=== PATIENT | male | born 1935 | race Caucasian/White ===

== ENCOUNTER → 2016-10-06 | Outpatient (CLI) | payer OTHER ==
[~2016-10-06] MED LIST: ACETAMINOPHEN650 M5 PO; ASPIRIN EC81 M1 PO; ATENOLOL 25MG T25 M1 PG; ATENOLOL 50 MG50 M1 PO; BENICAR20 MG PO; BUTALB-APAP-CA1 EACH PO; COLACE100 MG PO; DARVOCET-N 1001 EACH PO; DIAZEPAM 5 MG5 M1 PO; FIORICET 50-321 EACH PO; IRON236 MG PO; K-DUR 20 MEQ T20 MEQ PO; LASIX 40 MG TAB40 M1 PO; LORTAB 5 MG/5001 TAB; LORTAB 5 MG/5001 TAB PO; MAXIDE; MIRALAX255 GM PO; MOM PO; MULTIVITAMINS PO; NORCO 5-325 TA1 EACH PO; PACERONE 200 M200 M1 PO; PERCOCET 5-3251 EACH PO; PHISOHEX148 ML TP; SENNA PO; SIMVASTATIN40 MG PO; TRIBENZOR 20-51 EACH PO; VITAMIN D400 UNIT PO; ZOFRAN ODT4 MG PO
== END ==
LOC: RAD 16:15
DX: R07.89 Other chest pain (principal)

== ENCOUNTER → 2016-10-11 | Outpatient (CLI) | payer OTHER ==
[2016-10-11 08:46] LABS: CREATININE 1.3 mg/dL (0.7-1.3)
== END ==
LOC: CAT 08:15
PROVIDERS: Internal Medicine
DX: R91.8 Other nonspecific abnormal finding of lung field (principal)

== ENCOUNTER → 2016-10-18 | Outpatient (CLI) | payer OTHER ==
[~2016-10-18] VITALS: Ht 172.7 cm; Wt 70.3 kg
[~2016-10-18] MED LIST changes: +BENICAR40 MG PO; +BYSTOLIC 5 MG5 M1 PO; +LIDODERM 5%1 PATC1 TOP; +LIVALO2 MG PO; +SERTRALINE HCL50 MG PO; +TRAZODONE HCL50 MG PO; +VALACYCLOVIR1000 MG PO; +VITAMIN D1000 UNI1 PO; +XANAX 0.25 MG0.25 MG PO; +ZETIA10 MG PO
--- NOTE | ~2016-10-18 | S ---
[facility] [place] [address] SURGICAL PATH RPT PROCEDURE Name: STEVEN PANCHAL Room #: [facility] Kevin.#: [id number] Admission: 10/18/16 Date of : 37 Discharge: Report #: [id number] Path Case #: [id number] PATHOLOGY REPORT COLLECTION DATE: 10/18/2016 RECEIVED DATE: 10/18/2016 SUBMITTING PHYS: Dr. 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 (PLEASE SEE COMMENT) COMMENT: Examination shows a malignant neoplasm with spindled cells, pleomorphic, markedly enlarged nuclei, occasional nucleoli, and large areas of geographic necrosis. Mitotic figures are identified easily. Overall, the differential diagnosis includes a sarcomatoid carcinoma or a malignant mesothelioma. A wide range of immunohistochemical stains are performed to further identify the neoplasm. Block A1: AE1/AE3: non-reactive; Vimentin: strongly reactive; TTF-1: non-reactive (internal control works appropriately with alveolar li showing strong reactivity); CK5/6: non-reactive; P40: non-reactive; BerEp4: reactive within the rare glandular areas; WT1: strong nuclear reactivity present within rare tumor cells; D2-40: reactive within occasional cells. 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 This case is sent to [facility] for their expert opinion. Co-review: Dr. Taz Mijares. The findings are discussed with Dr. Paul Hartley at 11:00 a.m., on 10/23/16. (IUV:csd; d/t: 10/23/2016) PATHOLOGIST: Jessica Gaviria M.D. REPORT ELECTRONICALLY SIGNED BY: Jessica Gaviria M.D. [facility] [place] [address] SURGICAL PATH RPT PROCEDURE Name: STEVEN PANCHAL Room #: [facility].#: [id number] Admission: 10/18/16 Date of : 37 Discharge: Report #: [id number] Path Case #: [id number] DATE/TIME: 10/23/2016 12:56 * * * * * * * * * * * * GROSS PATHOLOGY: Received in formalin labeled "Steven Panchal, left lung biopsy," are seven distinct needle cores of silva soft tissue ranging from 0.3 to 1.9 cm in length, which are submitted entirely in cassette A1. (CAA; 10/19/2016) CLINICAL HISTORY: Left lung mass INITIAL CPT CODE(S): A; 49390, 14798, 10672, 58896, 38042, 26626, 13418, 87927, 12822 Professional services performed by [facility] at [facility] , [place] [address] Technical services performed by [facility] at [address] [place] [address], [address], [place] [address]. [facility] [address] [place] [address] PHONE: [phone] DIRECTOR: Stas Haley M.D. * * * END OF REPORT * * *
[2016-10-18 08:27] VITALS: BP 146/59
[2016-10-18 08:56] LABS: HEMATOCRIT 40.1 % (42.0-52.0); HEMOGLOBIN 13.7 gm/dL (14.0-18.0); MCH 29.2 pg (26.0-34.0); MCHC 34.3 g/dL (28.0-37.0); MCV 85.2 fL (80.0-100.0); RBC 4.7 mil/uL (4.50-6.00); RDW 13.8 % (10.5-14.5); WBC 6.7 thou/uL (4.0-11.0)
[2016-10-18 09:03] LABS: CALCIUM 8.5 mg/dL (8.5-10.1); CREATININE 1.2 mg/dL (0.7-1.3); POTASSIUM 4.4 mmol/L (3.5-5.1)
[2016-10-18 09:12] LABS: APTT 30.6 Seconds (24.5-32.8); PROTIME 10.7 Seconds (9.3-11.4)
[2016-10-18 10:00] VITALS: BP 150/74
[2016-10-18 10:04] VITALS: BP 155/72
[2016-10-18 10:10] VITALS: BP 149/59
== END | disposition home or self-care (01) ==
LOC: CAT 07:42
PROVIDERS: Radiology Vascular & Interventional Radiology
DX: C34.92 Malignant neoplasm of unspecified part of left bronchus or lung (principal)

== ENCOUNTER → 2016-11-14 | Outpatient (CLI) | payer OTHER ==
[2016-11-14 07:25] LABS: ABSOLUTE NEUTROPHILS 4.5 thou/uL (1.4-8.2); BASOPHILS 1.4 % (0.0-2.0); EOSINOPHILS 5.4 % (0.0-3.0); HEMATOCRIT 43.5 % (42.0-52.0); HEMOGLOBIN 14.8 gm/dL (14.0-18.0); MCH 29.4 pg (26.0-34.0); MCV 86.4 fL (80.0-100.0); MONOCYTES 8.3 % (1.0-8.0); PLATELET COUNT 244 thou/uL (150-400); POLYS 66.9 % (36.0-66.0); RBC 5.03 mil/uL (4.50-6.00); RDW 14.3 % (10.5-14.5); WBC 6.7 thou/uL (4.0-11.0)
[2016-11-14 07:26] LABS: MANUAL DIFF NO
[2016-11-14 07:35] LABS: CALCIUM 9.5 mg/dL (8.5-10.1); CREATININE 1.3 mg/dL (0.7-1.3); POTASSIUM 4.1 mmol/L (3.5-5.1)
[2016-11-14 07:40] LABS: ALBUMIN 3.6 g/dL (3.4-5.0); TOTAL BILIRUBIN 0.6 mg/dL (<0.1-1.0); TOTAL PROTEIN 7.1 g/dL (6.4-8.2)
== END ==
LOC: MRI 06:46
PROVIDERS: Internal Medicine Hematology & Oncology
DX: C34.12 Malignant neoplasm of upper lobe, left bronchus or lung (principal); C43.9 Malignant melanoma of skin, unspecified; R94.02 Abnormal brain scan

== ENCOUNTER 2016-12-25 22:19 | Inpatient (IN) | payer OTHER ==
[~2016-12-25] VITALS: Ht 170.2 cm; Wt 59.7 kg
--- NOTE | ~2016-12-25 | HC ---
[facility] [place] [address] CONSULTATION Name: VINCEVIVEKSTEVEN Cuevas Bianca Room #: 313-P ADM IN M.R.#: [id number] Admission: 12/26/16 Attend Phys: Angel Avalos DO Discharge: Date of : 36 Report #: [id number] THIS REPORT FOR: //name// CC: Paul Sherman HISTORY OF PRESENT ILLNESS: The patient is an 81-year-old white male with history of lung cancer with brain mets, admitted with chest pain. Chest x-ray showed a large left lung mass. He was diagnosed with recurrent chest wall pain secondary to cancer pain. He was seen by oncology. They are recommending consultation with radiation oncology with radiation therapy to the pleural based lesion. He also has some acute renal insufficiency with increase in his creatinine. He has been rehydrated with improvement from 2.2 down to 1.2. There is noted some hypercalcemia, which has improved from 10.2 down to 8.8. We are seeing him in rehabilitation medicine consultation. 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 MEDICATIONS: Please see the full medication listing. PAST SURGICAL HISTORY: Cholecystectomy, colostomy with take down, and CABG times 5 in 2010. HABITS: One beer daily, 2 cigarettes per day, former heavier tobacco smoker. SOCIAL HISTORY: House, spouse, 3 steps in, did not utilize gait aids, does have involved family. REVIEW OF SYSTEMS: Did not offer any current complaints of chest pain, shortness of breath, or abdominal discomfort. PHYSICAL EXAMINATION: GENERAL: He is a pleasant 81-year-old short statured white male, rather slender, no obvious distress. The patient is alert and pleasant VITAL SIGNS: Last recorded temperature 98.6, pulse 64, respirations 18, and blood pressure 164/81. HEENT: Appeared to be benign. NEUROLOGIC: Cranial nerves are grossly intact. He follows basic commands without difficulty. EXTREMITIES: He has functional range of motion of both upper extremities with good strength 5-/5. Lower extremities, no focal calf swelling, functional range of motion with good strength 5- to 4+/5. DTRs are trace to 1. Tone appeared to [address] [address] CONSULTATION Name: STEVEN PANCHAL Room #: 313-P [facility] IN M.R.#: [id number] Admission: 12/26/16 Attend Phys: Angel Avalos DO Discharge: Date of : 37 Report #: [id number] be intact. No focal calf swelling. He was able to sit to stand with contact guard assistance and is ambulating 300 feet contact guard without a gait aid. He was seen by occupational therapy, can don his socks. OT is actually discharged him and recommended home health care. ASSESSMENT: An 81-year-old white male with the following problem list: 1. Lung cancer with brain metastasis. 2. Hypercalcemia that has improved. 3. Acute renal insufficiency that also has improved with hydration. 4. Back pain, which appears better. 5. Elevated BNP. 6. History of kjk-weooc-gxfv lung cancer with a pleural based lesion and consideration for radiation therapy. 7. Coronary artery disease, status post coronary artery bypass graft. PLAN: Appears to be too high level at this time to warrant an acute in-hospital inpatient rehabilitation stay. He is ambulating 300 feet without gait aids and both PT and OT are recommending home with home health care. Thank you for asking us to assist in this patient's care. By: 1434 1527 Steven Morales MD /nt
--- NOTE | ~2016-12-25 | EKG ---
[place] [address] [facility] [place] [place] [address] ELECTROCARDIOGRAM REPORT Name: ABDULKADIRSTEVEN Valenzuela Room #: 313-P ADM IN M.R.#: [id number] Admission: 12/26/16 Attend Phys: Angel Avalos DO Discharge: Date of : 36 Report #: [id number] THIS REPORT FOR: //name// [facility] ED Test Date: 2016-12-25 Test Time: 22:23:58 Pat Name: STEVEN PANCHAL Department: Room: [facility] Gender: M Contract Associate: CLARA : 1935 Requested By: Mau Rubio Order Number: [id number] MD: Mundo Mata Measurements Intervals [place] Rate: 56 P: -6 TN: 143 QRS: 27 QRSD: 95 T: 76 QT: 416 QTc: 402 Interpretive Statements Sinus rhythm No significant abnormality Compared to ECG 12/07/2016 20:17:50 No significant change was found Electronically Signed On 12-27-2016 7:23:33 CDT by Mundo Mata [email or web address] <ELECTRONICALLY SIGNED> By: Mundo Mata MD, [facility] 12/27/16 07 22 22 Mundo Mata MD, [facility] /EPI
--- NOTE | ~2016-12-25 | HC ---
[facility] [place] [address] CONSULTATION Name: STEVEN PANCHAL Room #: 313-P ADM IN M.R.#: [id number] Admission: 12/26/16 Attend Phys: Angel Avalos DO Discharge: Date of : 37 Report #: [id number] THIS REPORT FOR: //name// CC: Paul Sherman REASON FOR CONSULTATION: Metastatic lung cancer. 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 He completed radiation therapy with SRS to the left parietal and right temporal on June 14 and to the right frontal on June 16. He received a single fraction of both. The patient describes having some left posterior chest wall back pain that hits him may be once a day and is present 25% of the time. He uses a Lidoderm patch and also uses a muscle relaxer. I think he mentioned tizanidine, at least by the way he tried to spell it, but I do not see him currently on that. He was brought in last night, also was thought to be perhaps slightly confused. His calcium was slightly elevated for his albumin of 3. Ionized calcium is currently pending. Today, the patient is eating breakfast and appears to be feeling better. The patient says the pain has been present off and on for several weeks, may have been slightly worse lately. Denies any new headache troubles, any fevers or chills, diarrhea or constipation, arm or leg swelling or skin rash. His appetite has been off. PAST MEDICAL HISTORY: Past history is notable for a history of non-small cell lung cancer metastatic to the brain that currently appears to be target marker negative. Also has history of tonsillectomy, cholecystectomy, ruptured colon and a colostomy in the past in 1998, appendectomy, MRSA in 1999, depression, hypertension, CABG times 5 in 2010, coronary artery disease and BPH. MEDICATIONS: At home, he had been thought to include Tribenzor, Xanax, nebivolol, trazodone, valacyclovir, fentanyl patch, Lidocaine patch and Fioricet. ALLERGIES: MORPHINE caused hallucinations, TALC caused some itching, CODEINE caused some unknown issues, PENICILLIN unknown issues and SULFONAMIDE, unknown reaction. SOCIAL HISTORY: Not recently smoking, alcohol rarely, street drugs none. [address] [address] CONSULTATION Name: STEVEN PANCHAL Bianca Room #: 313-P [facility] IN M.R.#: [id number] Admission: 12/26/16 Attend Phys: Angel Avalos DO Discharge: Date of : 37 Report #: [id number] FAMILY HISTORY: Noncontributory. PHYSICAL EXAMINATION: GENERAL: The patient appears his stated age. NEUROLOGIC: His face is symmetrical. He appears to be alert and oriented, though he is slightly tired from prior lack of sleep. He has some slight pain between his shoulder blades, that is actually better with palpation, not worse. No pain on rib compression. LUNGS: Have fairly good air motion. HEART: Appears to be regular rate. ABDOMEN: Soft. No mass. EXTREMITIES: Without clubbing or cyanosis. LABORATORY DATA: Labs here, as mentioned above, shows a CBC with a white count of 8.7, hemoglobin 12.1 and platelets 391,000. Chemistry, creatinine at 2.2, which is higher than usual for the patient. Calcium of 10.2, albumin of 3.0. Coags were normal. ASSESSMENT AND PLAN: 1. 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 May consider radiation therapy to the chest wall mass to help with the pain. 2. Back pain. Continue with Lidoderm patch and opiates and muscle relaxers. May consider radiation therapy. This we will check with Dr. Berman to see if he has plans to do so. 3. Calcium. Await ionized calcium level. 4. Renal insufficiency. Await repeat creatinine. 5. Hypertension, meds. 6. Hyperlipidemia, meds. We will follow with you. <ELECTRONICALLY SIGNED> By: Tyree Sherman MD 12/27/16 0750 0820 1127 Tyree Sherman MD /nt
[~2016-12-25 22:19] MED LIST changes: +FENTANYL PA50 MCG/HR TRANSDERM; +OXYCODONE HCL10 MG PO; +OXYCODONE HCL5 MG PO; +SENOKOT-S1 TA1 PO; +VALACYCLOVIR500 MG PO
[2016-12-25 22:20] VITALS: BP 111/51
[2016-12-26 00:24] LABS: ABSOLUTE NEUTROPHILS 6.9 thou/uL (1.4-8.2); BASOPHILS 0.7 % (0.0-2.0); EOSINOPHILS 2.6 % (0.0-3.0); HEMATOCRIT 35.6 % (42.0-52.0); HEMOGLOBIN 12.1 gm/dL (14.0-18.0); LYMPHOCYTES 11.1 % (24.0-44.0); MCH 28.1 pg (26.0-34.0); MCV 82.7 fL (80.0-100.0); MONOCYTES 6.5 % (1.0-8.0); PLATELET COUNT 391 thou/uL (150-400); POLYS 79.1 % (36.0-66.0); RBC 4.31 mil/uL (4.50-6.00); RDW 14.2 % (10.5-14.5); WBC 8.7 thou/uL (4.0-11.0)
[2016-12-26 00:29] LABS: MANUAL DIFF NO
[2016-12-26 00:32] LABS: ANION GAP 10 mmol/L (7-16); BUN 54 mg/dL (7-18); CALCIUM 10.2 mg/dL (8.5-10.1); CHLORIDE 93 mmol/L (98-107); CO2 29 mmol/L (21-32); CREATININE 2.2 mg/dL (0.7-1.3); GLUCOSE 112 mg/dL (74-106); SODIUM 132 mmol/L (136-145)
[2016-12-26 00:47] LABS: APTT 34.3 Seconds (24.5-32.8); INR 1.1
[2016-12-26 00:50] LABS: ALKALINE PHOSPHATASE 68 U/L (46-116); CK-MB MASS 1.5 ng/mL (<0.5-3.6); MAGNESIUM 1.9 mg/dL (1.8-2.4); NT-PRO BRAIN NAT PEPTIDE 415 pg/mL (<300); SGOT 23 U/L (15-37); SGPT 27 U/L (30-65); TOTAL BILIRUBIN 0.6 mg/dL (<0.1-1.0); TOTAL PROTEIN 6.8 g/dL (6.4-8.2); TROPONIN-I < 0.04 ng/mL (<0.04-0.07)
[2016-12-26 02:30] VITALS: BP 119/51; BP 94/58
[2016-12-26 03:20] VITALS: BP 119/59
[2016-12-26 07:33] VITALS: BP 133/59
[2016-12-26 10:35] LABS: CALCIUM 9.8 mg/dL (8.5-10.1); CREATININE 1.8 mg/dL (0.7-1.3); POTASSIUM 3.8 mmol/L (3.5-5.1)
[2016-12-26 15:52] VITALS: BP 123/66
[2016-12-26 19:57] VITALS: BP 154/70
[2016-12-27 04:32] VITALS: BP 134/61
[2016-12-27 05:34] LABS: ABSOLUTE NEUTROPHILS 4.4 thou/uL (1.4-8.2); BASOPHILS 1.3 % (0.0-2.0); EOSINOPHILS 4.8 % (0.0-3.0); HEMATOCRIT 32.8 % (42.0-52.0); HEMOGLOBIN 11.3 gm/dL (14.0-18.0); LYMPHOCYTES 12.2 % (24.0-44.0); MCH 28.3 pg (26.0-34.0); MCHC 34.5 g/dL (28.0-37.0); MONOCYTES 8.8 % (1.0-8.0); POLYS 72.9 % (36.0-66.0); RDW 13.9 % (10.5-14.5); WBC 6.1 thou/uL (4.0-11.0)
[2016-12-27 05:40] LABS: MANUAL DIFF NO; PLATELET COUNT 309 thou/uL (150-400)
[2016-12-27 05:44] LABS: CALCIUM 8.8 mg/dL (8.5-10.1); CREATININE 1.2 mg/dL (0.7-1.3); MAGNESIUM 1.5 mg/dL (1.8-2.4); POTASSIUM 3.6 mmol/L (3.5-5.1)
[2016-12-27 07:44] VITALS: BP 164/81
[2016-12-27 20:01] VITALS: BP 141/60
[2016-12-28 04:12] VITALS: BP 173/67
[2016-12-28 08:00] VITALS: BP 133/55
[2016-12-28 16:00] VITALS: BP 169/81
[2016-12-28 20:00] VITALS: BP 146/67
[2016-12-29 04:00] VITALS: BP 156/70
[2016-12-29 07:30] VITALS: BP 160/70
[2016-12-29] MEDS ORDERED: DIPHENHIST25 M1 PO (09:12)
[2016-12-29] MEDS ORDERED: FENTANYL PA50 MCG/HR TRANSDERM (09:12)
[2016-12-29] MEDS ORDERED: XANAX 0.25 MG0.25 MG PO (09:13)
[2016-12-29] MEDS ORDERED: COLACE 100 MG100 MG PO (09:13)
[2016-12-29] MEDS ORDERED: OXYCODONE HCL10 MG PO (09:13)
[2016-12-29] MEDS ORDERED: BUTALB-APAP-CA1 EACH PO (09:13)
[2016-12-29] MEDS ORDERED: DEXAMETHASONE 22 M1 PO (09:14)
[2016-12-29] MEDS ORDERED: VALTREX 500 MG500 MG PO (09:21)
[2016-12-29] MEDS ORDERED: CLOTRIMAZOLE10 MG PO (09:25)
[2016-12-29] MEDS ORDERED: DEXAMETHASONE2 MG PO (09:25)
[2016-12-29 10:09] VITALS: BP 160/70
[2016-12-29 10:57] VITALS: BP 160/70
== END 2016-12-29 11:10 | disposition home health service (06) | DRG 180 ==
LOC: ER 22:19 → EROBS 12-26 01:25 → 3N 12-26 01:25 → EROBS 12-26 01:25 → 3N 12-26 02:49
PROVIDERS: Emergency Medicine; Nurse Practitioner; Nurse Practitioner Family
DX: C34.92 Malignant neoplasm of unspecified part of left bronchus or lung (principal); N17.1 Acute kidney failure with acute cortical necrosis; C79.31 Secondary malignant neoplasm of brain; E44.1 Mild protein-calorie malnutrition; G89.3 Neoplasm related pain (acute) (chronic); F32.9 Major depressive disorder, single episode, unspecified; I10 Essential (primary) hypertension; I25.10 Atherosclerotic heart disease of native coronary artery without angina pectoris; E86.0 Dehydration; E78.5 Hyperlipidemia, unspecified; M54.9 Dorsalgia, unspecified; F41.9 Anxiety disorder, unspecified; B37.9 Candidiasis, unspecified; D64.9 Anemia, unspecified; N40.0 Benign prostatic hyperplasia without lower urinary tract symptoms; E83.52 Hypercalcemia; Z86.14 Personal history of Methicillin resistant Staphylococcus aureus infection; Z68.20 Body mass index [BMI] 20.0-20.9, adult; Z93.3 Colostomy status; Z95.1 Presence of aortocoronary bypass graft; Z87.891 Personal history of nicotine dependence; Z90.49 Acquired absence of other specified parts of digestive tract; Z88.5 Allergy status to narcotic agent; Z88.0 Allergy status to penicillin; Z88.2 Allergy status to sulfonamides; Z88.8 Allergy status to other drugs, medicaments and biological substances; Z91.040 Latex allergy status

== ENCOUNTER 2017-01-21 20:16 | Inpatient (IN) | payer OTHER ==
[~2017-01-21] VITALS: Ht 172.7 cm; Wt 56.9 kg
--- NOTE | ~2017-01-21 | HC ---
[facility] [place] [address] CONSULTATION Name: TAYAMasonSTEVEN Room #: 430-P ADM IN M.R.#: [id number] Admission: 01/21/17 Attend Phys: Noel Palmer MD Discharge: Date of : 36 Report #: [id number] THIS REPORT FOR: //name// CC: Paul Palmer DATE OF SERVICE: 01/22/2017 ATTENDING PHYSICIAN: Dr. Palmer. REASON FOR CONSULTATION: Acute kidney injury. HISTORY OF PRESENT ILLNESS: This is an 81-year-old gentleman with history of hypertension, coronary artery disease, has been found to have lung cancer, recently completed radiation therapy for brain metastasis and back metastasis. He has a large lung mass. He is not a candidate for chemotherapy. He became progressively weak and fatigued, had poor intake, and was found to have an elevated creatinine and hyponatremia. PAST MEDICAL HISTORY: He has history of hypertension, coronary artery disease, previous coronary artery bypass. He has a lung cancer, also as mentioned. HOME MEDICATIONS: Include fentanyl, oxycodone, Colace. He had been on some Decadron. He is on Tribenzor which is amlodipine, hydrochlorothiazide, olmesartan; as well as nebivolol. So, 4 medicines for blood pressure. Had been on valacyclovir. PAST SURGICAL HISTORY: Also includes tonsillectomy, cholecystectomy and appendectomy. SOCIAL HISTORY: Former smoker, but he quit. REVIEW OF SYSTEMS: The patient is a poor historian. GENERAL: He is rather weak and soft spoken. EYES: His vision is okay. ENT: Denies mouth sores or ulcers. Swallowing okay. ENDOCRINE: No diabetes. RESPIRATORY: Denies shortness of breath or pleuritic pain. No cough or hemoptysis. CARDIAC: Denies current chest pain or swelling, no palpitations. GASTROINTESTINAL: Poor intake, but no nausea, vomiting, diarrhea or bloody stools. GENITOURINARY: States he has a reasonably good stream. NEUROLOGIC: Generalized weakness, no history of seizure or stroke. PSYCHIATRIC: Appears somewhat depressed. [facility] [address] [place] [address] CONSULTATION Name: STEVEN PANCHAL Room #: 430-P [facility] ..#: [id number] Admission: 01/21/17 Attend Phys: Noel Palmer MD Discharge: Date of : 36 Report #: [id number] PHYSICAL EXAMINATION: VITAL SIGNS: This is an awake and alert, soft spoken, may be slightly confused gentleman, in no acute distress. SKIN: Unremarkable. SKELETAL: Thin, wasted appearing gentleman. HEENT: Extraocular movements are full. Vision is intact. Hearing is intact. Mucous membranes are moist. Tongue, buccal mucosa benign. NECK: Supple. CHEST: Clear to auscultation. HEART: Regular. ABDOMEN: Soft and nontender. EXTREMITIES: No edema. LABORATORY DATA: Urinalysis showed specific gravity 1.025. No evidence of infection. Hemoglobin 10.2, sodium 127, potassium 4, chloride 94, bicarbonate 25. Creatinine 2.5, down from 3.6. BUN 56, down from 67. Should note that the creatinine as recently as 12/08 was 1.1, was 1.2 on 12/27. ASSESSMENT AND PLAN: 1. Elevated creatinine. He appears to have some degree of chronic kidney disease, likely due to his hypertension; now elevated creatinine, likely due to low blood pressure, diuretics, poor p.o. intake. The diuretics will be stopped. He has been given appropriate IV fluids. This all should correct without too much trouble. 2. Hyponatremia. Also likely due to poor intake. Also should correct with the saline. 3. Metastatic lung metastatic cancer, status post radiation therapy. 4. History of hypertension, now hypotensive. 5. Coronary artery disease, status post previous bypass. <ELECTRONICALLY SIGNED> By: Best Girard MD 01/23/17 1155 0910 1027 Best Girard MD /nt
--- NOTE | ~2017-01-21 | HC ---
[facility] [place] [address] CONSULTATION Name: VINCEVIVEKMasonSTEVEN Room #: 430-P ADM IN M.R.#: [id number] Admission: 01/21/17 Attend Phys: Noel Palmer MD Discharge: Date of : 37 Report #: [id number] THIS REPORT FOR: //name// CC: Dr. Best Jara MD REASON FOR CONSULTATION: History of lung cancer. HISTORY OF PRESENT ILLNESS: The patient is a very pleasant 81-year-old gentleman with a history of sarcomatoid variant non-small cell lung cancer that is mutation negative who unfortunately at the time of diagnosis had both left pleural surfaces and brain metastases. He completed radiation therapy to the both brain spots. He recently also completed this past Sunday radiation therapy to the pleural left chest wall lesion. He was brought in because of progressive weakness and some decreased mentation. It sounds like his oral intake had been less. He also has generalized weakness yesterday. Today, the day after admission, he is able to answer simple questions. He says he still has discomfort/pain. He says that his breathing seems comfortable, though he is slightly tired. He denies any nausea, any belly change, any new arm or leg swelling. He is very slow answering and is able to answer I think questions for the present, but is not very good for long-term information. I did have an opportunity to call and talk to his , Sepideh, at home. She stated and confirmed that he had finished radiation therapy on Sunday, though he had been weaker. He has still been using the 50 mcg of fentanyl patch and may be 2 pain pills, may be 3 times a day. Yesterday, he seemed fuzzy and weak. His appetite had been decreased, so he has recently called a prescription for Megace to take. PAST MEDICAL HISTORY: Notable for the history of non-small cell lung cancer metastatic to the brain at the time of diagnosis that appears to be target marker negative. Also, he has had radiation therapy to the brain mets as well as the left chest wall just recently. Also, history of tonsillectomy, cholecystectomy, ruptured colon with diverticulitis and the colostomy in the past in 1998, appendectomy, MRSA in 1999, depression, hypertension, past CABG x 5 in 2010 and of course that means he also had coronary artery disease and also BPH, hypercalcemia. MEDICATIONS: Recently on discharge had included Tribenzor 20-5-12.5 a half a tablet daily, nebivolol 5 mg daily, Lidoderm patch, trazodone 50 mg at bedtime, valacyclovir 500 mg daily, Senokot-S 1 tablet twice daily 50 mcg patch every 72 hours, Fioricet 1 tab early at bedtime as needed, Xanax 0.25 at bedtime as needed for sleep, oxycodone 10 mg q. 4 for pain, Benadryl 50 mg at bedtime for sleep as needed, docusate 100 mg twice daily. Dexamethasone had been on [address] [address] CONSULTATION Name: TAYASTEVEN Cuevas Bianca Room #: 430-P [facility] IN M.R.#: [id number] Admission: 01/21/17 Attend Phys: Noel Palmer MD Discharge: Date of : 37 Report #: [id number] twice daily, not sure if he is still on this. We will need to confirm. Clotrimazole, he had been on valacyclovir. SOCIAL HISTORY: Has a spouse, is retired, not a recent smoking or alcohol, no street drugs. FAMILY HISTORY: Noncontributory. No one else at home had been sickly. PHYSICAL EXAMINATION: GENERAL: The patient appears his stated age. VITAL SIGNS: Height is 5 feet 8 inches, 172.7 cm, weight is 125.4 pounds or 56.9 kg. Blood pressure is 94/50, respirations 18, pulse 62, temperature is 97.5. HEENT: Face is symmetrical. Oropharynx is slightly dry. HEART: Regular rate. No enlarged lymph nodes in the supraclavicular, cervical, axillary or inguinal region. ABDOMEN: Soft, actually scaphoid. EXTREMITIES: Without clubbing or cyanosis. LABORATORY DATA: Here is notable for BUN yesterday of 67 with a creatinine of 3.6 today, BUN of 56 with a creatinine of 2.5. Note that during last admit is 1.2 on 12/27/2016. Sodium was 120 for yesterday, today is 127; potassium 4. Liver functions: Total Bili 0.4, ALT 22, albumin is 2.9. Coags last admit were normal. White count 9.2, hemoglobin 10.2, MCV 83.2, platelet count 296 today, differential fairly normal. DISCUSSION: ____ about code status and they said they wish continued care, but did not want aggressive or ventilation or CPR type things and I will change his status to no code. ASSESSMENT AND PLAN: 1. Non-small cell lung cancer. He recently completed radiation therapy at chest wall. We will wait to see if the patient gets strong enough for systemic therapy, but at this point, I think that is somewhat doubtful. 2. Weakness, probably related to dehydration. We will see how the patient does with gentle hydration. We will also need to clarify with his whether he has still been taking the dexamethasone at home to see if that should be continued. 3. Pain. Continue fentanyl patch. If decreased, we will probably need to see if we can walk down his oxycodone dose, which was probably 10 or 20 q. 8 p.r.n. 4. Hypertension and cardiac issues, continue those meds cautiously with blood pressure below 100. 5. Weakness. PT and OT yet to see the patient. Prognosis is very guarded at [address] [address] CONSULTATION Name: STEVEN PANCHAL Room #: 430-P [facility] IN M.R.#: [id number] Admission: 01/21/17 Attend Phys: Noel Palmer MD Discharge: Date of : 37 Report #: [id number] this point for long-term recovery. Short-term is also not so bright. We will follow with you. <ELECTRONICALLY SIGNED> By: Tyree Sherman MD 01/23/17 2116 0805 0927 Tyree Sherman MD /nt
--- NOTE | ~2017-01-21 | EKG ---
[address] [address] ELECTROCARDIOGRAM REPORT Name: STEVEN PANCHAL Room #: 430-P ADM IN M.R.#: [id number] Admission: 01/21/17 Attend Phys: Noel Palmer MD Discharge: Date of : 36 Report #: [id number] THIS REPORT FOR: //name// [facility] ED Test Date: 2017-01-21 Test Time: 20:21:32 Pat Name: STEVEN CLARKEVIVEKMason Department: Room: 430 Gender: M Medical Doctor: CLARA : 1935 Requested By: Lucila Cole Order Number: [id number] MD: Kayode Garcia Measurements Intervals [place] Rate: 60 P: 68 NV: 169 QRS: 42 QRSD: 109 T: 7 QT: 413 QTc: 413 Interpretive Statements Sinus rhythm Probable left atrial enlargement Compared to ECG 12/25/2016 22:23:58 No significant changes Electronically Signed On 01-22-2017 16:43:20 CDT by Kayode Garcia [email or web address] <ELECTRONICALLY SIGNED> By: Kayode Garcia MD 01/22/17 1643 20 20 Kayode Garcia MD /[email or web address]
[~2017-01-21 20:16] MED LIST changes: +CLOTRIMAZOLE10 MG PO; +COLACE 100 MG100 MG PO; +DEXAMETHASONE 22 M1 PO; +DEXAMETHASONE2 MG PO; +DIPHENHIST25 M1 PO; +VALTREX 500 MG500 MG PO
[2017-01-21 20:17] VITALS: BP 133/37
[2017-01-21 21:08] LABS: HEMATOCRIT 31.6 % (42.0-52.0); HEMOGLOBIN 10.9 gm/dL (14.0-18.0); MCH 28.3 pg (26.0-34.0); MCHC 34.4 g/dL (28.0-37.0); MCV 82.3 fL (80.0-100.0); PLATELET COUNT 370 thou/uL (150-400); RBC 3.84 mil/uL (4.50-6.00); RDW 15.9 % (10.5-14.5); WBC 9.2 thou/uL (4.0-11.0)
[2017-01-21 21:11] LABS: ANION GAP 9 mmol/L (7-16); BUN 67 mg/dL (7-18); CALCIUM 9.4 mg/dL (8.5-10.1); CHLORIDE 89 mmol/L (98-107); CO2 26 mmol/L (21-32); CREATININE 3.6 mg/dL (0.7-1.3); GLUCOSE 127 mg/dL (74-106); POTASSIUM 4.6 mmol/L (3.5-5.1); SODIUM 124 mmol/L (136-145)
[2017-01-21] MEDS ORDERED: ONDANSETRON HCL4 M2 PO (21:14)
[2017-01-21 21:18] LABS: MANUAL DIFF YES
[2017-01-21 21:20] LABS: ALBUMIN 2.9 g/dL (3.4-5.0); ALKALINE PHOSPHATASE 80 U/L (46-116); SGOT 14 U/L (15-37); SGPT 22 U/L (30-65); TOTAL BILIRUBIN 0.4 mg/dL (<0.1-1.0); TOTAL PROTEIN 6.7 g/dL (6.4-8.2); TROPONIN-I < 0.04 ng/mL (<0.04-0.07)
[2017-01-21 21:52] LABS: ABSOLUTE NEUTROPHILS 8.3 thou/uL (1.4-8.2); TOTAL CELL COUNT 100
[2017-01-21 22:01] LABS: URINE BILIRUBIN 1+ (Negative); URINE BLOOD NEGATIVE (Negative); URINE COLOR YELLOW; URINE GLUCOSE-RANDOM* NEGATIVE (Negative); URINE KETONES NEGATIVE (Negative); URINE NITRITE NEGATIVE (Negative); URINE PROTEIN (DIPSTICK) 1+ (Negative); URINE SPECIFIC GRAVITY 1.025 (1.003-1.035)
[2017-01-21 22:12] LABS: ICTOTEST (BILI CONFIRMATORY) Positive (Negative); SQUAMOUS None Seen /LPF (0-3); URINE RBC None Seen /HPF (0-2); URINE WBC None Seen /HPF (0-5)
[2017-01-21 22:13] LABS: BACTERIA None Seen /HPF (None Seen); HYALINE CASTS 0-3 Few /LPF (None Seen)
[2017-01-21 22:17] VITALS: BP 107/49
[2017-01-21 22:44] VITALS: BP 109/50
[2017-01-22 00:32] VITALS: BP 110/60
[2017-01-22 04:30] VITALS: BP 94/50
[2017-01-22 05:09] LABS: HEMOGLOBIN 10.2 gm/dL (14.0-18.0); MCH 28.2 pg (26.0-34.0); MCHC 33.9 g/dL (28.0-37.0); MCV 83.2 fL (80.0-100.0); RBC 3.6 mil/uL (4.50-6.00); RDW 16.1 % (10.5-14.5); WBC 7.6 thou/uL (4.0-11.0)
[2017-01-22 05:18] LABS: CALCIUM 8.9 mg/dL (8.5-10.1)
[2017-01-22 05:25] LABS: CREATININE 2.5 mg/dL (0.7-1.3)
[2017-01-22 07:53] VITALS: BP 100/51
[2017-01-22] MEDS ORDERED: OXYCODONE HCL 55 MG PO (11:58)
[2017-01-22] MEDS ORDERED: SERTRALINE HCL50 MG PO (12:00)
[2017-01-22] MEDS ORDERED: COMPAZINE10 MG PO (12:01)
[2017-01-22 16:16] VITALS: BP 109/56
[2017-01-22 21:28] VITALS: BP 123/59
[2017-01-23 03:57] VITALS: BP 117/57
[2017-01-23 06:21] LABS: HEMATOCRIT 30.5 % (42.0-52.0); HEMOGLOBIN 10.4 gm/dL (14.0-18.0); MCH 28.4 pg (26.0-34.0); MCHC 33.9 g/dL (28.0-37.0); MCV 83.8 fL (80.0-100.0); RBC 3.64 mil/uL (4.50-6.00); RDW 16.2 % (10.5-14.5); WBC 6.4 thou/uL (4.0-11.0)
[2017-01-23 06:36] LABS: ALBUMIN 2.2 g/dL (3.4-5.0); CALCIUM 8.8 mg/dL (8.5-10.1); PHOSPHORUS 3.2 mg/dL (2.5-4.9); POTASSIUM 4.4 mmol/L (3.5-5.1)
[2017-01-23 06:48] LABS: CREATININE 1.4 mg/dL (0.7-1.3)
[2017-01-23 08:44] VITALS: BP 127/55
[2017-01-23 15:32] VITALS: BP 111/57
[2017-01-23 20:43] VITALS: BP 148/70
[2017-01-24 03:45] VITALS: BP 157/70
[2017-01-24 06:20] LABS: ALBUMIN 2.3 g/dL (3.4-5.0); CALCIUM 8.9 mg/dL (8.5-10.1); PHOSPHORUS 2.4 mg/dL (2.5-4.9); POTASSIUM 4.1 mmol/L (3.5-5.1)
[2017-01-24 10:10] VITALS: BP 132/66
[2017-01-24 14:08] VITALS: BP 132/66
[2017-01-24 14:18] VITALS: BP 132/66
== END 2017-01-24 14:52 | disposition hospice, home (50) | DRG 682 ==
LOC: ER 20:16 → 4E 22:00 → EROBS 22:00 → 4E 22:46
PROVIDERS: Hospitalist; Internal Medicine Nephrology; Nurse Practitioner Family; Physician Assistant
DX: N17.9 Acute kidney failure, unspecified (principal); E43 Unspecified severe protein-calorie malnutrition; E87.1 Hypo-osmolality and hyponatremia; C34.90 Malignant neoplasm of unspecified part of unspecified bronchus or lung; C79.31 Secondary malignant neoplasm of brain; Z68.1 Body mass index [BMI] 19.9 or less, adult; I25.10 Atherosclerotic heart disease of native coronary artery without angina pectoris; Z66 Do not resuscitate; N40.0 Benign prostatic hyperplasia without lower urinary tract symptoms; F32.9 Major depressive disorder, single episode, unspecified; E86.0 Dehydration; N18.9 Chronic kidney disease, unspecified; I12.9 Hypertensive chronic kidney disease with stage 1 through stage 4 chronic kidney disease, or unspecified chronic kidney disease; E86.9 Volume depletion, unspecified; Z95.1 Presence of aortocoronary bypass graft; Z79.899 Other long term (current) drug therapy; Z88.5 Allergy status to narcotic agent; Z88.0 Allergy status to penicillin; Z90.49 Acquired absence of other specified parts of digestive tract; Z88.2 Allergy status to sulfonamides; Z88.6 Allergy status to analgesic agent; Z91.040 Latex allergy status; Z87.891 Personal history of nicotine dependence; Z93.3 Colostomy status
CPT/HCPCS: 10183